=== PATIENT | female | born 1965 | race Two or more races ===

== ENCOUNTER 2022-08-09 22:21 | Emergency (ER) | payer MEDICAID, OTHER ==
[~2022-08-09] VITALS: Ht 154.9 cm; Wt 103.0 kg
[2022-08-09] MEDS ORDERED: HYDROmorphone HCL 2 MG/ML VL/or syr IV ONE (22:45)
[2022-08-09] MEDS ORDERED: ONDANSETRON HCL 4 MG/2 ML VIAL IV ONE (22:45)
[2022-08-09] MEDS ORDERED: SODIUM CHLORIDE 0.9% 1,000 ML IV ONE (22:45)
[2022-08-09 23:01] LABS: Basophils # (auto) 0.1 10 ^3/uL (0-0.2); Hemoglobin 12.7 g/dL (12.2-16.2); Lymphocytes # (auto) 2.7 10 ^3/uL (0.4-5.4); Lymphocytes % (auto) 29.5 % (10.0-50.0); White Blood Cell 9.1 10^3/uL (4.4-10.8)
[2022-08-09 23:03] LABS: Basophils % (auto) 0.6 % (0.0-2.0); Eosinophils # (auto) 0.4 10 ^3/uL (0-0.8); Eosinophils % (auto) 4.8 % (0.0-7.0); Hematocrit 37.6 % (36.0-46.0); Mean Corpuscular Hemoglobin 26.9 pg (28.0-32.0); Mean Corpuscular Hgb Conc. 33.7 g/dL (32.0-36.0); Mean Corpuscular Volume 79.9 fL (80.0-100.0); Monocytes # (auto) 0.7 10 ^3/uL (0-1.3); Monocytes % (auto) 7.5 % (0.0-12.0); Neutrophils # (auto) 5.2 10 ^3/uL (1.6-8.6); Neutrophils % (auto) 57.6 % (37.0-80.0); Red Blood Cells 4.71 10^6/uL (4.0-5.20); Red Cell Distribution Width 14.4 % (11.8-14.3)
[2022-08-09 23:19] LABS: Albumin 3.5 g/dL (3.4-5.0); BUN/Creatinine Ratio 15.6; Potassium 3.6 mmol/L (3.5-5.1)
[2022-08-09 23:21] LABS: Bilirubin, Total 0.3 mg/dL (0.2-1.0); Total Protein 7.6 g/dL (6.4-8.2)
[2022-08-10] MEDS ORDERED: PERCOT PO (04:09)
[2022-08-10] MEDS ORDERED: METR500T PO (04:09)
[2022-08-10] MEDS ORDERED: ONDA-144 PO (04:09)
[2022-08-10] MEDS ORDERED: CIPR-173 PO (04:09)
[2022-08-10] MEDS ORDERED: cefTRIAXone 1GM/50ML D5W 50 ML IV ONE (04:15)
[2022-08-10 04:18] LABS: Urine Bacteria FEW /hpf (None Seen); Urine Blood Negative /uL (Negative); Urine Mucus FEW (None Seen); Urine Specific Gravity 1.017 (1.001-1.035); Urine WBC 11 /hpf (0 - 5)
[2022-08-10] MEDS ORDERED: diphenhdrAMINE HCL 50 MG/1 ML VL IV ONE (06:30)
[2022-08-10] MEDS ORDERED: methylPREDNISolone SOD SUCC 125 MG/2 ML VL IV ONE (06:30)
[2022-08-10 06:55] VITALS: BP 142/72
== END 2022-08-10 07:00 | disposition home or self-care (01) ==
LOC: ER 22:27
DX: K57.90 Diverticulosis of intestine, part unspecified, without perforation or abscess without bleeding (principal); R10.13 Epigastric pain; N39.0 Urinary tract infection, site not specified; I10 Essential (primary) hypertension; Z88.6 Allergy status to analgesic agent; Z88.8 Allergy status to other drugs, medicaments and biological substances; Z90.49 Acquired absence of other specified parts of digestive tract; Z98.890 Other specified postprocedural states
CPT/HCPCS: 36415; 71045; 71250; 74176; 80053; 81001; 83690; 85025; 96361; 96365; 96375; 99285; J0696; J1170; J1200; J2405; J2930; J7030

== ENCOUNTER 2022-09-27 09:32 | Day surgery (SDC) | payer MEDICAID ==
[~2022-09-27] VITALS: Ht 154.9 cm; Wt 104.3 kg
[~2022-09-27 09:32] MED LIST: CLOB0.055 EX; CYCL-837 PO; FLUO20TA34 PO; FLUT1AER12 IN; GABA300C10 PO; HYDR1SYP3 PO; LISI20TA28 PO; MECL12.514 PO; OMEP20TA PO; SULI200T5 PO; UMEC1INH IN
[2022-09-27] MEDS ORDERED: VANCOMYCIN HCL 1000 MG VL ONE (10:15)
[2022-09-27] MEDS ORDERED: MIDAZOLAM HCL 2MG/2ML 2ml VIAL (1mg/ml) ONE (10:18)
[2022-09-27] MEDS ORDERED: PROPOFOL 10 MG/ML 20 ML IV ONE (10:18)
[2022-09-27] MEDS ORDERED: fentaNYL CITRATE 100 MCG/2 ML VL ONE (10:18)
[2022-09-27] MEDS ORDERED: GLYCOPYRROLATE 0.2 MG/ML 1ML VIAL ONE (10:18)
[2022-09-27] MEDS ORDERED: ONDANSETRON HCL 4 MG/2 ML VIAL ONE (10:18)
[2022-09-27] MEDS ORDERED: LIDOCAINE 1% HCL (LOCAL ANESTH.) INJ 20ML MDV ONE (10:30)
[2022-09-27] MEDS ORDERED: ONDANSETRON HCL 4 MG/2 ML VIAL IV PRN (11:15)
[2022-09-27] MEDS ORDERED: HYDROmorphone HCL 2 MG/ML VL/or syr IV PRN (11:15)
[2022-09-27 12:30] VITALS: BP 128/57
== END 2022-09-27 13:00 | disposition home or self-care (01) ==
LOC: SUR 09:32
PROVIDERS: ATTEND Orthopaedic Surgery Adult Reconstructive Orthopaedic Surgery
DX: G56.02 Carpal tunnel syndrome, left upper limb (principal); J44.9 Chronic obstructive pulmonary disease, unspecified; Z87.891 Personal history of nicotine dependence; Z90.49 Acquired absence of other specified parts of digestive tract; Z98.890 Other specified postprocedural states
CPT/HCPCS: 64721; J2001; J2250; J2405; J2704; J3010; J3370

== ENCOUNTER 2023-05-21 20:26 | Emergency (ER) | payer MEDICAID ==
[~2023-05-21] VITALS: Ht 154.9 cm; Wt 103.0 kg
[~2023-05-21 20:26] MED LIST changes: -FLUO20TA34 PO; +FLUO20TA36 PO; +GABA-1250 PO; -GABA300C10 PO; -LISI20TA28 PO; +LISI20TA56 PO; -MECL12.514 PO; +MECL1TAB31 PO; -SULI200T5 PO; +SULI200T8 PO
[2023-05-21 20:41] VITALS: BP 145/79; PULSE 80; RESP 18; TEMP 97.6; O2SAT 95
[2023-05-21] MEDS ORDERED: HYDR-4902 PO (23:14)
[2023-05-21] MEDS ORDERED: DexAMETHasone SOD PHOS 10MG/1ML VIAL INJ IM ONE (23:15)
[2023-05-21] MEDS ORDERED: HYDROcodone-ACET 5/325MG TAB PO ONE (23:15)
== END 2023-05-21 23:34 | disposition home or self-care (01) ==
LOC: ER 20:26
DX: M51.16 Intervertebral disc disorders with radiculopathy, lumbar region (principal); I10 Essential (primary) hypertension; Z88.0 Allergy status to penicillin; Z88.1 Allergy status to other antibiotic agents; Z90.49 Acquired absence of other specified parts of digestive tract
CPT/HCPCS: 72131; 93971; 96372; 99285; J1100